=== PATIENT | male | born 1985 | race African-American/Black ===

== ENCOUNTER 2022-07-05 20:31 | Emergency (ER) | payer MEDICAID ==
[~2022-07-05] VITALS: Ht 188 cm; Wt 91.0 kg
[2022-07-05 20:47] VITALS: BP 149/87
== END 2022-07-06 02:52 | disposition left against medical advice (07) ==
LOC: ER 20:31
DX: Z53.21 Procedure and treatment not carried out due to patient leaving prior to being seen by health care provider (principal)
CPT/HCPCS: 93005; 99281